=== PATIENT | female | born 1950 | race Caucasian/White ===

== ENCOUNTER → 2018-06-04 09:43 | Outpatient (CLI) | payer OTHER, SELFPAY ==
--- NOTE | 2018-06-04 | DI.MRI.S_ITS ---
PROCEDURE: MR HIP LT WO CON INDICATIONS: Other specified joint disorders, unspecified hip TECHNIQUE: Noncontrast coronal T1 spin echo and STIR through the bony pelvis. Coronal and axial T2 fast spin echo with fat saturation, sagittal T1 spin echo, and oblique axial T2 fast spin echo with fat saturation through the hip. COMPARISON: [facility] [place], CR, XR PELVIS WITH BILATERAL LATERAL HIPS, 05/16/2018, 10:56. Outside Film, CT, CT ABDOMEN PELVIS WITHOUT CONTRAST, 05/25/2018, 20:17. FINDINGS: Image quality: Excellent. Bones and joints: No fracture identified. However there is diffuse marrow signal heterogeneity with replacement of the normal marrow fat signal intensity particularly in the lumbar spine, iliac wings and to lesser extent the femurs. No avascular necrosis of the femoral heads. Lower lumbar discogenic changes. Tendons and ligaments: Prominent thickening and intrasubstance signal change/T2 hyperintensity involving the left gluteus minimus tendon as well as the left gluteus medius tendon at their insertions. The proximal iliotibial band appears intact. The iliopsoas tendon appears intact, without adjacent bursal fluid collections or evidence for impingement syndrome. The origin of the hamstring tendon is minimally thickened at the ischial tuberosity raising possibility of low-grade age indeterminate tendinopathy. The straight and reflected heads of the rectus femoris muscle origin appear intact, as well as the conjoint tendon. The ligamentum teres appears intact where visualized. Labrum and cartilage: The anterosuperior acetabular labrum appears frayed, although limited evaluation in the absence of intra-articular contrast. This could represent age-appropriate degenerative sequela. Mild bilateral hip joint degeneration.. The alpha angle of the femur is within normal limits at less than 55 degrees. Soft tissues: Visualized muscles demonstrate normal bulk and internal signal. Quadratus femoris muscle demonstrates no internal edema to suggest ischiofemoral impingement. The proximal sciatic neurovascular bundle appears normal adjacent to the hamstring tendons. No free pelvic fluid. Bladder wall thickness is normal. Genitourinary structures and bowel loops appear normal where visualized. IMPRESSION: Left hip abductor insertional tendinopathy. Age-indeterminate mild hamstring origin tendinopathy. Mild bilateral hip joint degeneration. Poorly defined tear of the anterosuperior labrum, this could be chronic/degenerative. Please correlate clinically. Nonspecific heterogeneous appearance of the marrow signal raising the possibility of chronic anemia although possibilities such as myelofibrosis, early osseous metastases or other diffuse marrow infiltrative processes in the differential. Dictated by: Domenic Balderrama M.D. on 06/04/2018 at 10:46 Approved by: Domenic Balderrama M.D. on 06/04/2018 at 12:27
== END ==
PROVIDERS: PCP Family Medicine; Visit Provider Orthopaedic Surgery
DX: M25.859 Other specified joint disorders, unspecified hip (principal); M16.0 Bilateral primary osteoarthritis of hip; S73.192A Other sprain of left hip, initial encounter; M67.952 Unspecified disorder of synovium and tendon, left thigh
CPT/HCPCS: 73721